=== PATIENT | female | born 1945 | race African-American/Black ===

== ENCOUNTER 2018-04-23 11:40 | Emergency (ER) | payer MEDICARE, MEDICAID ==
[~2018-04-23] VITALS: Ht 162.6 cm; Wt 80.0 kg
[~2018-04-23 11:40] MED LIST: AMLO10TA80 PO; ATEN100T PO; BENA40TA3 PO; CLOP75TA16 PO; HYDR25TA PO; PROT40 PO
[2018-04-23 13:05] LABS: EOSINOPHILS % 1.1 % (0.0-5.0); HEMATOCRIT. 36.6 % (36.0-48.0); HEMOGLOBIN. 11.5 g/dL (12.0-16.0); LYMPHOCYTES % 26.8 % (20.0-50.0); MEAN CORPUSCULAR HEMOGLOBIN 22.6 pg (28.0-32.0); MEAN CORPUSCULAR VOLUME 72.1 fL (81.0-99.0); MEAN PLATELET VOLUME 8.5 fl (7.4-10.4); MONOCYTES % 7.7 % (2.0-8.0); NEUTROPHILS % 63.4 % (40.0-76.0); PLATELET 329 x1000/uL (130-400); RED BLOOD CELL COUNT 5.08 mill/uL (4.2-5.4)
[2018-04-23 13:12] LABS: PROTHROMBIN TIME 10.8 sec (9.4-11.6)
[2018-04-23 13:21] LABS: CHLORIDE 107 mEq/L (98-107)
[2018-04-23 15:37] LABS: CLARITY URINE CLEAR (CLEAR); COLOR URINE YELLOW (YELLOW); KETONES URINE NEGATIVE (NEGATIVE); LEUKOCYTE ESTERASE URINE NEGATIVE (NEGATIVE); NITRITE URINE NEGATIVE (NEGATIVE); OCCULT BLOOD URINE TRACE (NEGATIVE); PH URINE 5.5 (4.5-8.0); PROTEIN URINE 2+ (NEGATIVE); SPECIFIC GRAVITY URINE 1.015 (1.005-1.030); UROBILINOGEN URINE 0.2 E.U./dL (0.2-1.0)
[2018-04-23] MEDS ORDERED: ATENOLOL 100 MG TABLET PO NR (15:45)
[2018-04-23] MEDS ORDERED: POTASSIUM CHLORIDE INJ 40 MEQ in DEXT 5% WATER 250 ML IV ONE (15:45)
[2018-04-23] MEDS ORDERED: POTASSIUM CHLORIDE 20MEQ TABLET SR PO ONE (15:45)
[2018-04-23] MEDS ORDERED: KCL 20 MEQ/100 ML IV SCH (16:00)
[2018-04-23] MEDS ORDERED: KCL 20MEQ/100ML PREMIX 100 ML IV SCH (16:49)
[2018-04-23 20:26] LABS: CHLORIDE 111 mEq/L (98-107)
[2018-04-24 00:19] VITALS: BP 158/63
== END 2018-04-24 01:00 | disposition home or self-care (01) ==
LOC: ER 11:40
DX: I10 Essential (primary) hypertension (principal); E78.00 Pure hypercholesterolemia, unspecified; E11.9 Type 2 diabetes mellitus without complications; M16.11 Unilateral primary osteoarthritis, right hip; M17.11 Unilateral primary osteoarthritis, right knee; E87.6 Hypokalemia; Z87.891 Personal history of nicotine dependence
CPT/HCPCS: 36415; 73502; 73562; 80048; 80053; 81003; 85025; 85610; 96365; 96366; 99285; J3480

== ENCOUNTER 2018-12-27 10:09 | Inpatient (IN) | payer MEDICARE, MEDICAID ==
[~2018-12-27] VITALS: Ht 152.4 cm; Wt 78.6 kg
[2018-12-27] VITALS (7 sets, daily range): BP systolic 143–162; BP diastolic 87–97
[~2018-12-27 10:09] MED LIST changes: -BENA40TA3 PO; +BENA40TA9 PO
[2018-12-27] MEDS ORDERED: SODIUM CHLORIDE 0.9% 1000ML BAG (SEPSIS BOLUS) IV ONE (11:30)
[2018-12-27] MEDS ORDERED: CEFTRIAXONE 1 G PREMIX 50 ML IV ONE (11:30)
[2018-12-27 12:23] LABS: HEMATOCRIT. 23.9 % (36.0-48.0); MEAN CORPUSCULAR HEMOGLOBIN 14.8 pg (28.0-32.0); MEAN CORPUSCULAR VOLUME 55.7 fL (81.0-99.0); MEAN PLATELET VOLUME 8.2 fl (7.4-10.4); PLATELET 380 x1000/uL (130-400); RED CELL DISTRIBUTION WIDTH 26.5 % (11.6-14.6)
[2018-12-27 12:24] LABS: INR 1.1; PROTHROMBIN TIME 10.9 sec (9.1-11.1)
[2018-12-27 12:27] LABS: CHLORIDE 104 mEq/L (98-107)
[2018-12-27 12:34] LABS: HEMOGLOBIN. 6.3 g/dL (12.0-16.0)
[2018-12-27 12:40] LABS: BG BASE EXCESS -3.7 mmol/L (-2.0-2.0); BG CARBOXYHEMOGLOBIN 2.5 % (0.5-1.5); BG DEOXYHEMOGLOBIN 3.6 % (0.0-5.0); BG FRACTION INSPIRED OXYGEN 100; BG HCO3 ACT 19.7 mmol/L (22.0-26.0); BG METHEMOGLOBIN 0.1 % (0.0-1.5); BG OXYGEN SATURATION 96.3 % (92.0-98.5); BG OXYHEMOGLOBIN 93.8 % (94.0-97.0); BG PCO2 28.3 mmHg (35.0-45.0); BG PO2 91.2 mmHg (75.0-100.0); BG SAMPLE SITE LEFT BRACHIAL; BG TOTAL HEMOGLOBIN 6.6 g/dL (12.0-18.0); BG VENT MODE MASK - NRB
[2018-12-27 13:06] LABS: CLARITY URINE CLEAR (CLEAR); COLOR URINE YELLOW (YELLOW); KETONES URINE TRACE (NEGATIVE); LEUKOCYTE ESTERASE URINE NEGATIVE (NEGATIVE); NITRITE URINE NEGATIVE (NEGATIVE); OCCULT BLOOD URINE NEGATIVE (NEGATIVE); PH URINE 5.5 (4.5-8.0); PROTEIN URINE 1+ (NEGATIVE); SPECIFIC GRAVITY URINE 1.025 (1.005-1.030)
[2018-12-27 13:27] LABS: PLATELET ESTIMATE NORMAL
[2018-12-27] MEDS ORDERED: LORAZEPAM 2MG/ML CPJ IV ONE ×2 (13:30→15:30)
[2018-12-27] MEDS ORDERED: VANCOMYCIN 1 G PREMIX 200 ML IV SCH (13:30)
[2018-12-27] MEDS ORDERED: PIPERACILLIN/TAZOBACTAM 3.375GM/50ML PREMIX IV ONE (13:30)
[2018-12-27] MEDS ORDERED: HYDRALAZINE 20MG/ML VIAL IV PRN (20:00)
[2018-12-27] MEDS ORDERED: GUAIFENESIN 200MG/10ML SUGAR FREE UDC PO PRN (20:00)
[2018-12-27] MEDS ORDERED: MAGNESIUM/ALUMINUM HYDROXIDE/SIMETHICONE 30ML UDC PO PRN (20:00)
[2018-12-27] MEDS ORDERED: DIPHENHYDRAMINE 50MG/ML VIAL IV PRN (20:00)
[2018-12-27] MEDS ORDERED: IPRATROPIUM/ALBUTEROL 0.5-3(2.5)MG/3ML NEB INH PRN (20:00)
[2018-12-27] MEDS ORDERED: CLONIDINE 0.1MG TABLET PO PRN (20:00)
[2018-12-27] MEDS ORDERED: NA PHOS,M-B/NA PHOS,DI-BA ENEMA 118ML PR PRN (20:00)
[2018-12-27] MEDS ORDERED: PIPERACILLIN/TAZ 2.25G PREMIX 50 ML IV SCH (20:00)
[2018-12-27] MEDS ORDERED: ONDANSETRON HCL 4MG/2ML INJ IV PRN (20:00)
[2018-12-27] MEDS ORDERED: DEXTROSE 50% WATER 50ML SYRINGE IV PRN (20:00)
[2018-12-27] MEDS ORDERED: ALBUTEROL (0.083%) 2.5MG/3ML NEB INH SCH (20:00)
[2018-12-27] MEDS ORDERED: ACETAMINOPHEN 650MG SUPP PR PRN (20:00)
[2018-12-27] MEDS ORDERED: DOCUSATE SODIUM 100MG CAPSULE PO PRN (20:00)
[2018-12-27] MEDS ORDERED: ACETAMINOPHEN 650MG/20.3ML UDC GT PRN (20:00)
[2018-12-27] MEDS ORDERED: ATOR10TA69 MT (20:11)
[2018-12-27] MEDS: BLOOD SUGAR DIAGNOSTIC STRIP TEST SCH (21:00)
[2018-12-27] MEDS: INSULIN LISPRO 100 UNITS/ML SUBCUT SCH (21:00)
[2018-12-27] MEDS: SODIUM CHLORIDE 0.9% INJ 3ML FLUSH IVF SCH (22:00)
[2018-12-27] MEDS ORDERED: POTASSIUM CHLORIDE INJ 40 MEQ in DEXT 5% WATER 500 ML IV NR (22:00)
[2018-12-27 22:19] LABS: BG BASE EXCESS -0.7 mmol/L (-2.0-2.0); BG BILEVEL POS AIRWAY PRESSURE 15/7; BG CARBOXYHEMOGLOBIN 1.8 % (0.5-1.5); BG DEOXYHEMOGLOBIN 2.3 % (0.0-5.0); BG FRACTION INSPIRED OXYGEN 50; BG HCO3 ACT 23.1 mmol/L (22.0-26.0); BG METHEMOGLOBIN 0.3 % (0.0-1.5); BG OXYGEN SATURATION 97.7 % (92.0-98.5); BG OXYHEMOGLOBIN 95.6 % (94.0-97.0); BG PCO2 34.1 mmHg (35.0-45.0); BG PH 7.449 (7.350-7.450); BG PO2 106.8 mmHg (75.0-100.0); BG SAMPLE SITE LEFT RADIAL; BG TOTAL HEMOGLOBIN 7.8 g/dL (12.0-18.0); BG VENT MODE MASK - BIPAP
[2018-12-27] MEDS: SODIUM CHLORIDE 0.9% 1,000 ML IV SCH (22:47)
[2018-12-28] VITALS (12 sets, daily range): BP systolic 114–154; BP diastolic 69–95
[2018-12-28] MEDS ORDERED: ALBUTEROL (0.083%) 2.5MG/3ML NEB HHN SCH
[2018-12-28 00:32] LABS: CREATINE KINASE MB FRACTION 2.1 ng/mL (0.5-3.6)
[2018-12-28] MEDS: PIPERACILLIN/TAZ 3.375G PREMIX 50 ML IV SCH ×5 (00:47→23:33)
[2018-12-28] MEDS: SODIUM CHLORIDE 0.9% INJ 3ML FLUSH IVF SCH ×3 (05:59→21:26)
[2018-12-28] MEDS: VANCOMYCIN 750 MG PREMIX 150 ML IV SCH (06:05)
[2018-12-28 06:26] LABS: CLARITY URINE CLEAR (CLEAR); COLOR URINE YELLOW (YELLOW); KETONES URINE NEGATIVE (NEGATIVE); LEUKOCYTE ESTERASE URINE NEGATIVE (NEGATIVE); NITRITE URINE NEGATIVE (NEGATIVE); OCCULT BLOOD URINE 1+ (NEGATIVE); PH URINE 6.5 (4.5-8.0); PROTEIN URINE NEGATIVE (NEGATIVE); SPECIFIC GRAVITY URINE 1.013 (1.005-1.030); UROBILINOGEN URINE 0.2 E.U./dL (0.2-1.0)
[2018-12-28] MEDS: BLOOD SUGAR DIAGNOSTIC STRIP TEST SCH ×4 (06:56→20:40)
[2018-12-28] MEDS: INSULIN LISPRO 100 UNITS/ML SUBCUT SCH ×4 (07:20→20:39)
[2018-12-28 07:23] LABS: *AMPHETAMINES SCREEN URINE NEGATIVE (NEGATIVE); *BARBITURATES SCREEN URINE NEGATIVE (NEGATIVE); *BENZODIAZEPINES SCREEN URINE NEGATIVE (NEGATIVE)
[2018-12-28 07:24] LABS: *COCAINE SCREEN URINE NEGATIVE (NEGATIVE); CANNABINOID URINE SCREEN NEGATIVE (NEGATIVE); METHADONE URINE SCREEN NEGATIVE (NEGATIVE); OPIATES URINE SCREEN PRESUMTIVE POSITIVE (NEGATIVE); PHENCYCLIDINE URINE SCREEN NEGATIVE (NEGATIVE)
[2018-12-28 07:47] LABS: HEMATOCRIT. 24.5 % (36.0-48.0); HEMOGLOBIN. 7.2 g/dL (12.0-16.0); MEAN CORPUSCULAR HEMOGLOBIN 17.4 pg (28.0-32.0); MEAN PLATELET VOLUME 8.2 fl (7.4-10.4); PLATELET 267 x1000/uL (130-400); RED BLOOD CELL COUNT 4.15 mill/uL (4.2-5.4); RED CELL DISTRIBUTION WIDTH 29.1 % (11.6-14.6)
[2018-12-28 08:02] LABS: CHLORIDE 107 mEq/L (98-107)
[2018-12-28 08:13] LABS: CREATINE KINASE 119 IU/L (26-192); HDL CHOLESTEROL 45 mg/dL (40-59); LDL CHOLESTEROL 24 mg/dL (5-100)
[2018-12-28 08:17] LABS: CREATINE KINASE MB FRACTION 1.9 ng/mL (0.5-3.6)
[2018-12-28 10:12] LABS: T4 FREE 1.12 ng/dL (0.76-1.46)
[2018-12-28 11:45] LABS: BG BASE EXCESS -0.3 mmol/L (-2.0-2.0); BG CARBOXYHEMOGLOBIN 1.8 % (0.5-1.5); BG FRACTION INSPIRED OXYGEN 36; BG HCO3 ACT 23.2 mmol/L (22.0-26.0); BG METHEMOGLOBIN 0.3 % (0.0-1.5); BG OXYGEN SATURATION 89.8 % (92.0-98.5); BG OXYHEMOGLOBIN 87.9 % (94.0-97.0); BG PCO2 33.2 mmHg (35.0-45.0); BG PH 7.463 (7.350-7.450); BG PO2 57.8 mmHg (75.0-100.0); BG SAMPLE SITE RIGHT BRACHIAL; BG TOTAL HEMOGLOBIN 7.8 g/dL (12.0-18.0); BG VENT MODE NASAL CANNULA
[2018-12-28 15:35] LABS: BG CARBOXYHEMOGLOBIN 1.2 % (0.5-1.5); BG DEOXYHEMOGLOBIN 13.4 % (0.0-5.0); BG FRACTION INSPIRED OXYGEN 50; BG HCO3 ACT 24.2 mmol/L (22.0-26.0); BG METHEMOGLOBIN 0.3 % (0.0-1.5); BG OXYGEN SATURATION 86.4 % (92.0-98.5); BG OXYHEMOGLOBIN 85.1 % (94.0-97.0); BG PCO2 32.4 mmHg (35.0-45.0); BG PH 7.492 (7.350-7.450); BG SAMPLE SITE RIGHT BRACHIAL; BG TOTAL HEMOGLOBIN 7.6 g/dL (12.0-18.0); BG VENT MODE MASK - VENTI
[2018-12-28] MEDS: ALBUTEROL (0.083%) 2.5MG/3ML NEB HHN SCH ×2 (16:00→20:04)
[2018-12-28 17:01] LABS: CREATINE KINASE MB FRACTION 1.3 ng/mL (0.5-3.6)
[2018-12-28] MEDS: SODIUM CHLORIDE 0.9% 1,000 ML IV SCH (17:19)
[2018-12-28] MEDS: POTASSIUM CHLORIDE 20MEQ TABLET SR PO PRN (17:32)
[2018-12-28 21:40] LABS: CREATINE KINASE 94 IU/L (26-192)
[2018-12-28 21:41] LABS: CREATINE KINASE MB FRACTION < 1.0 ng/mL (0.5-3.6)
[2018-12-28 21:47] LABS: PLATELET ESTIMATE NORMAL
[2018-12-29] VITALS (16 sets, daily range): BP systolic 121–165; BP diastolic 66–95
[2018-12-29] MEDS: ALBUTEROL (0.083%) 2.5MG/3ML NEB HHN SCH ×6 (00:04→20:59)
[2018-12-29] MEDS: VANCOMYCIN 750 MG PREMIX 150 ML IV SCH ×3 (00:42→21:11)
[2018-12-29] MEDS: SODIUM CHLORIDE 0.9% INJ 3ML FLUSH IVF SCH ×3 (06:21→21:12)
[2018-12-29] MEDS: BLOOD SUGAR DIAGNOSTIC STRIP TEST SCH ×4 (06:21→21:00)
[2018-12-29] MEDS: PIPERACILLIN/TAZ 3.375G PREMIX 50 ML IV SCH ×3 (06:21→17:08)
[2018-12-29] MEDS: INSULIN LISPRO 100 UNITS/ML SUBCUT SCH ×4 (06:21→21:00)
[2018-12-29 06:47] LABS: CREATINE KINASE 102 IU/L (26-192); CREATINE KINASE MB FRACTION < 1.0 ng/mL (0.5-3.6)
[2018-12-29] MEDS: SODIUM CHLORIDE 0.9% 1,000 ML IV SCH (10:05)
[2018-12-29 13:11] LABS: HEMATOCRIT. 26.9 % (36.0-48.0); HEMOGLOBIN. 7.6 g/dL (12.0-16.0); MEAN CORPUSCULAR HEMOGLOBIN 16.5 pg (28.0-32.0); MEAN CORPUSCULAR VOLUME 58.6 fL (81.0-99.0); MEAN PLATELET VOLUME 8.2 fl (7.4-10.4); PLATELET 264 x1000/uL (130-400); RED BLOOD CELL COUNT 4.59 mill/uL (4.2-5.4); RED CELL DISTRIBUTION WIDTH 30.3 % (11.6-14.6)
[2018-12-29 13:16] LABS: CHLORIDE 103 mEq/L (98-107)
[2018-12-29 13:43] LABS: PLATELET ESTIMATE NORMAL
[2018-12-29] MEDS ORDERED: LACTULOSE 20G/30ML UDC PO SCH (14:00)
[2018-12-29] MEDS: ACETAMINOPHEN 325MG TABLET PO PRN (17:58)
[2018-12-29] MEDS ORDERED: IOHEXOL-350 100 ML BOTTLE ONE (19:08)
[2018-12-29] MEDS: POTASSIUM CHLORIDE 20MEQ TABLET SR PO PRN (19:15)
[2018-12-30] VITALS (17 sets, daily range): BP systolic 110–155; BP diastolic 51–91
[2018-12-30] MEDS: PIPERACILLIN/TAZ 3.375G PREMIX 50 ML IV SCH ×4 (00:08→17:44)
[2018-12-30] MEDS: FUROSEMIDE 40MG/4ML VIAL IVP SCH ×2 (00:12→08:12)
[2018-12-30] MEDS: ALBUTEROL (0.083%) 2.5MG/3ML NEB HHN SCH ×6 (01:26→20:31)
[2018-12-30] MEDS: SODIUM CHLORIDE 0.9% INJ 3ML FLUSH IVF SCH ×3 (02:00→14:00)
[2018-12-30] MEDS: VANCOMYCIN 750 MG PREMIX 150 ML IV SCH ×3 (05:00→22:40)
[2018-12-30] MEDS: INSULIN LISPRO 100 UNITS/ML SUBCUT SCH ×4 (06:49→21:00)
[2018-12-30] MEDS: BLOOD SUGAR DIAGNOSTIC STRIP TEST SCH ×4 (06:49→21:00)
[2018-12-30] MEDS: HYDROCODONE/ACETAMINOPHEN 5/325MG TABLET PO PRN ×2 (07:07→11:45)
[2018-12-30 13:03] LABS: BG BASE EXCESS 6.8 mmol/L (-2.0-2.0); BG CARBOXYHEMOGLOBIN 1.3 % (0.5-1.5); BG DEOXYHEMOGLOBIN 16.7 % (0.0-5.0); BG HCO3 ACT 30.4 mmol/L (22.0-26.0); BG METHEMOGLOBIN 0.1 % (0.0-1.5); BG OXYGEN SATURATION 83.1 % (92.0-98.5); BG OXYHEMOGLOBIN 81.9 % (94.0-97.0); BG PCO2 39.1 mmHg (35.0-45.0); BG PH 7.508 (7.350-7.450); BG PO2 46.9 mmHg (75.0-100.0); BG SAMPLE SITE RIGHT RADIAL; BG TOTAL HEMOGLOBIN 9.1 g/dL (12.0-18.0); BG VENT MODE MASK - VENTI
[2018-12-30] MEDS ORDERED: SODIUM BICARBONATE 4% (2.4MEQ) 5ML VIAL IV ONE (13:20)
[2018-12-30] MEDS: SODIUM CHLORIDE 0.9% 1,000 ML IV SCH (17:49)
[2018-12-31] VITALS (19 sets, daily range): BP systolic 107–165; BP diastolic 51–91
[2018-12-31] MEDS: ALBUTEROL (0.083%) 2.5MG/3ML NEB HHN SCH ×5 (00:12→20:49)
[2018-12-31] MEDS: PIPERACILLIN/TAZ 3.375G PREMIX 50 ML IV SCH ×5 (01:12→23:39)
[2018-12-31] MEDS: SODIUM CHLORIDE 0.9% 1,000 ML IV SCH ×2 (04:00→23:40)
[2018-12-31] MEDS: VANCOMYCIN 750 MG PREMIX 150 ML IV SCH (04:58)
[2018-12-31] MEDS: SODIUM CHLORIDE 0.9% INJ 3ML FLUSH IVF SCH ×2 (06:00→22:19)
[2018-12-31] MEDS: BLOOD SUGAR DIAGNOSTIC STRIP TEST SCH ×4 (06:59→20:56)
[2018-12-31] MEDS: INSULIN LISPRO 100 UNITS/ML SUBCUT SCH ×4 (07:20→20:57)
[2018-12-31 08:21] LABS: CHLORIDE 98 mEq/L (98-107)
[2018-12-31] MEDS ORDERED: POTASSIUM CHLORIDE INJ 40 MEQ in DEXT 5% WATER 250 ML IV SCH (11:00)
[2018-12-31] MEDS: FUROSEMIDE 40MG/4ML VIAL IVP SCH (16:02)
[2018-12-31] MEDS: HYDROCODONE/ACETAMINOPHEN 5/325MG TABLET PO PRN (17:54)
[2018-12-31] MEDS: POTASSIUM CHLORIDE 20MEQ TABLET SR PO PRN (23:39)
[2019-01-01] VITALS (12 sets, daily range): BP systolic 116–151; BP diastolic 33–97
[2019-01-01] MEDS: ALBUTEROL (0.083%) 2.5MG/3ML NEB HHN SCH ×7 (00:38→23:09)
[2019-01-01] MEDS: PIPERACILLIN/TAZ 3.375G PREMIX 50 ML IV SCH (05:24)
[2019-01-01] MEDS: SODIUM CHLORIDE 0.9% INJ 3ML FLUSH IVF SCH ×3 (05:24→21:54)
[2019-01-01] MEDS: BLOOD SUGAR DIAGNOSTIC STRIP TEST SCH ×4 (06:59→20:28)
[2019-01-01] MEDS: INSULIN LISPRO 100 UNITS/ML SUBCUT SCH ×4 (07:20→20:28)
[2019-01-01 08:57] LABS: BG BASE EXCESS 7.2 mmol/L (-2.0-2.0); BG CARBOXYHEMOGLOBIN 0.8 % (0.5-1.5); BG DEOXYHEMOGLOBIN 1.6 % (0.0-5.0); BG FRACTION INSPIRED OXYGEN 80; BG HCO3 ACT 31.8 mmol/L (22.0-26.0); BG METHEMOGLOBIN 0.3 % (0.0-1.5); BG OXYGEN SATURATION 98.4 % (92.0-98.5); BG OXYHEMOGLOBIN 97.3 % (94.0-97.0); BG PCO2 45.7 mmHg (35.0-45.0); BG PO2 118.9 mmHg (75.0-100.0); BG SAMPLE SITE RIGHT BRACHIAL; BG TOTAL HEMOGLOBIN 9.5 g/dL (12.0-18.0); BG VENT MODE VAPOTHERM
[2019-01-01] MEDS: FUROSEMIDE 40MG/4ML VIAL IVP SCH (09:26)
[2019-01-01] MEDS: HYDROCODONE/ACETAMINOPHEN 5/325MG TABLET PO PRN ×2 (09:27→14:25)
[2019-01-01] MEDS ORDERED: VANCOMYCIN 1 G PREMIX 200 ML IV SCH (12:00)
[2019-01-01] MEDS: PIPERACILLIN/TAZ 2.25G PREMIX 50 ML IV SCH ×3 (12:54→23:11)
[2019-01-01] MEDS: SODIUM CHLORIDE 0.9% 1,000 ML IV SCH (20:36)
[2019-01-01 21:15] LABS: HEMOGLOBIN. 7.5 g/dL (12.0-16.0); MEAN CORPUSCULAR HEMOGLOBIN 17.3 pg (28.0-32.0); MEAN CORPUSCULAR VOLUME 59.6 fL (81.0-99.0); MEAN PLATELET VOLUME 8.3 fl (7.4-10.4); PLATELET 271 x1000/uL (130-400); RED BLOOD CELL COUNT 4.36 mill/uL (4.2-5.4); RED CELL DISTRIBUTION WIDTH 28.9 % (11.6-14.6)
[2019-01-01 21:22] LABS: INR 1.1; PROTHROMBIN TIME 10.8 sec (9.1-11.1)
[2019-01-01] MEDS ORDERED: HYDROCODONE/ACETAMINOPHEN 5/325MG TABLET PO PRN (21:30)
[2019-01-01 22:45] LABS: PLATELET ESTIMATE NORMAL
[2019-01-01] MEDS: POTASSIUM CHLORIDE 20MEQ TABLET SR PO PRN (23:11)
[2019-01-02] VITALS (12 sets, daily range): BP systolic 115–158; BP diastolic 62–88
[2019-01-02] MEDS: ALBUTEROL (0.083%) 2.5MG/3ML NEB HHN SCH ×5 (02:10→20:26)
[2019-01-02] MEDS: SODIUM CHLORIDE 0.9% INJ 3ML FLUSH IVF SCH ×3 (05:35→21:39)
[2019-01-02] MEDS: PIPERACILLIN/TAZ 2.25G PREMIX 50 ML IV SCH ×4 (05:35→23:56)
[2019-01-02 06:42] LABS: HEMATOCRIT. 25.5 % (36.0-48.0); HEMOGLOBIN. 7.6 g/dL (12.0-16.0); MEAN CORPUSCULAR HEMOGLOBIN 17.6 pg (28.0-32.0); MEAN CORPUSCULAR VOLUME 59.3 fL (81.0-99.0); MEAN PLATELET VOLUME 8.3 fl (7.4-10.4); PLATELET 289 x1000/uL (130-400); RED CELL DISTRIBUTION WIDTH 29.2 % (11.6-14.6)
[2019-01-02] MEDS: BLOOD SUGAR DIAGNOSTIC STRIP TEST SCH ×4 (06:44→21:39)
[2019-01-02] MEDS: INSULIN LISPRO 100 UNITS/ML SUBCUT SCH ×4 (07:19→21:00)
[2019-01-02] MEDS: FUROSEMIDE 40MG/4ML VIAL IVP SCH (08:20)
[2019-01-02] MEDS: ACETAMINOPHEN 325MG TABLET PO PRN ×2 (09:12→19:44)
[2019-01-02] MEDS ORDERED: VANCOMYCIN 1 G PREMIX 200 ML IV SCH (14:00)
[2019-01-02] MEDS: SODIUM CHLORIDE 0.9% 1,000 ML IV SCH (15:01)
[2019-01-03] VITALS (12 sets, daily range): BP systolic 104–175; BP diastolic 45–90
[2019-01-03] MEDS: ALBUTEROL (0.083%) 2.5MG/3ML NEB HHN SCH ×6 (00:05→20:01)
[2019-01-03] MEDS: ACETAMINOPHEN 325MG TABLET PO PRN ×3 (04:25→20:02)
[2019-01-03] MEDS: BLOOD SUGAR DIAGNOSTIC STRIP TEST SCH ×4 (06:02→20:51)
[2019-01-03] MEDS: SODIUM CHLORIDE 0.9% INJ 3ML FLUSH IVF SCH ×3 (06:04→21:55)
[2019-01-03] MEDS: PIPERACILLIN/TAZ 2.25G PREMIX 50 ML IV SCH ×3 (06:05→18:08)
[2019-01-03] MEDS: INSULIN LISPRO 100 UNITS/ML SUBCUT SCH ×4 (07:12→20:52)
[2019-01-03] MEDS: FUROSEMIDE 40MG/4ML VIAL IVP SCH (08:23)
[2019-01-03] MEDS: SODIUM CHLORIDE 0.9% 1,000 ML IV SCH (11:18)
[2019-01-03 13:45] LABS: PLATELET ESTIMATE NORMAL
[2019-01-03] MEDS ORDERED: VANCOMYCIN 1 G PREMIX 200 ML IV SCH (14:30)
[2019-01-03] MEDS: VANCOMYCIN 1 G PREMIX 200 ML IV SCH (16:30)
[2019-01-03] MEDS: DIPHENOXYLATE/ATROPINE 2.5/0.025MG TABLET PO PRN (21:53)
[2019-01-04] VITALS (9 sets, daily range): BP systolic 106–155; BP diastolic 58–83
[2019-01-04] MEDS: ALBUTEROL (0.083%) 2.5MG/3ML NEB HHN SCH ×6 (00:07→21:09)
[2019-01-04] MEDS: SODIUM CHLORIDE 0.9% INJ 3ML FLUSH IVF SCH ×3 (05:57→22:00)
[2019-01-04] MEDS: BLOOD SUGAR DIAGNOSTIC STRIP TEST SCH ×4 (06:32→21:58)
[2019-01-04] MEDS: INSULIN LISPRO 100 UNITS/ML SUBCUT SCH ×4 (07:20→21:00)
[2019-01-04] MEDS: FUROSEMIDE 40MG/4ML VIAL IVP SCH (10:03)
[2019-01-04] MEDS: SODIUM CHLORIDE 0.9% 1,000 ML IV SCH (10:04)
[2019-01-04] MEDS ORDERED: POTASSIUM CHLORIDE 20MEQ TABLET SR PO PRN (12:15)
[2019-01-04] MEDS: DIPHENOXYLATE/ATROPINE 2.5/0.025MG TABLET PO PRN (12:53)
[2019-01-04] MEDS: ACETAMINOPHEN 325MG TABLET PO PRN (15:57)
[2019-01-04] MEDS: POTASSIUM CHLORIDE 20MEQ TABLET SR PO PRN (15:57)
[2019-01-04] MEDS: VANCOMYCIN 1 G PREMIX 200 ML IV SCH (17:13)
[2019-01-04] MEDS ORDERED: ALBU2.5V13 HHN (19:59)
[2019-01-04] MEDS ORDERED: INSLIS SUBCUT (19:59)
[2019-01-04] MEDS ORDERED: FURO-151 MT (19:59)
[2019-01-05] VITALS (7 sets, daily range): BP systolic 115–154; BP diastolic 60–93
[2019-01-05] MEDS: ALBUTEROL (0.083%) 2.5MG/3ML NEB HHN SCH ×3 (01:55→08:00)
[2019-01-05] MEDS: SODIUM CHLORIDE 0.9% INJ 3ML FLUSH IVF SCH ×3 (06:34→21:56)
[2019-01-05] MEDS: BLOOD SUGAR DIAGNOSTIC STRIP TEST SCH ×4 (07:10→21:00)
[2019-01-05] MEDS: INSULIN LISPRO 100 UNITS/ML SUBCUT SCH ×4 (07:40→21:00)
[2019-01-05] MEDS: ACETAMINOPHEN 325MG TABLET PO PRN ×2 (09:36→15:38)
[2019-01-05] MEDS: FUROSEMIDE 40MG/4ML VIAL IVP SCH (09:36)
[2019-01-05] MEDS: IPRATROPIUM/ALBUTEROL 0.5-3(2.5)MG/3ML NEB HHN SCH ×2 (14:48→21:19)
[2019-01-05 16:44] LABS: BASOPHILS % 1.2 % (0.0-2.0); EOSINOPHILS % 1.3 % (0.0-5.0); HEMATOCRIT. 26.2 % (36.0-48.0); HEMOGLOBIN. 7.6 g/dL (12.0-16.0); LYMPHOCYTES % 25.8 % (20.0-50.0); MEAN CORPUSCULAR HEMOGLOBIN 17.3 pg (28.0-32.0); MEAN CORPUSCULAR VOLUME 59.5 fL (81.0-99.0); MEAN PLATELET VOLUME 8.3 fl (7.4-10.4); MONOCYTES % 9.4 % (2.0-8.0); NEUTROPHILS % 62.3 % (40.0-76.0); PLATELET 487 x1000/uL (130-400); RED BLOOD CELL COUNT 4.41 mill/uL (4.2-5.4); RED CELL DISTRIBUTION WIDTH 29.2 % (11.6-14.6)
[2019-01-05 16:49] LABS: CHLORIDE 104 mEq/L (98-107)
[2019-01-05] MEDS ORDERED: VANCOMYCIN 1,000 MG in DEXT 5% WATER 250 ML IV SCH ×2 (17:00→18:30)
== END 2019-01-05 23:00 | DRG 871 ==
LOC: ER 10:09 → EDBEDREQSVC 13:14 → EDBEDREQ 13:14 → EDBEDREQTM 13:14 → 3WST 13:23 → EDBEDREQSVC 13:23 → ENRESERV 15:36 → 8WST 01-04 13:23
PROVIDERS: ADMIT Family Medicine; ATTEND Family Medicine
PROC: 30233N1 Transfusion of Nonautologous Red Blood Cells into Peripheral Vein, Percutaneous Approach (ICD-10-PCS; 2018-12-27)
PROC: 5A09357 Assistance with Respiratory Ventilation, Less than 24 Consecutive Hours, Continuous Positive Airway Pressure (ICD-10-PCS; 2018-12-27)
PROC: 02HV33Z Insertion of Infusion Device into Superior Vena Cava, Percutaneous Approach (ICD-10-PCS; 2018-12-29)
PROC: B5181ZA Fluoroscopy of Superior Vena Cava using Low Osmolar Contrast, Guidance (ICD-10-PCS; 2018-12-29)
PROC: 0W9B3ZZ Drainage of Left Pleural Cavity, Percutaneous Approach (ICD-10-PCS; principal; 2018-12-30)
PROC: 5A09357 Assistance with Respiratory Ventilation, Less than 24 Consecutive Hours, Continuous Positive Airway Pressure (ICD-10-PCS; 2018-12-30)
PROC: 5A09357 Assistance with Respiratory Ventilation, Less than 24 Consecutive Hours, Continuous Positive Airway Pressure (ICD-10-PCS; 2018-12-31)
DX: A41.9 Sepsis, unspecified organism (principal); J96.00 Acute respiratory failure, unspecified whether with hypoxia or hypercapnia; J69.0 Pneumonitis due to inhalation of food and vomit; G92 Toxic encephalopathy; S22.32XA Fracture of one rib, left side, initial encounter for closed fracture; E87.2 Acidosis; J98.11 Atelectasis; J90 Pleural effusion, not elsewhere classified; T39.1X1A Poisoning by 4-Aminophenol derivatives, accidental (unintentional), initial encounter; D64.9 Anemia, unspecified; E87.6 Hypokalemia; E11.9 Type 2 diabetes mellitus without complications; I11.9 Hypertensive heart disease without heart failure; G89.4 Chronic pain syndrome; E78.5 Hyperlipidemia, unspecified; I10 Essential (primary) hypertension; I27.21 Secondary pulmonary arterial hypertension; W18.39XA Other fall on same level, initial encounter; Y93.89 Activity, other specified; Y92.89 Other specified places as the place of occurrence of the external cause; Y99.8 Other external cause status
CPT/HCPCS: 32555; 36415; 36569; 36600; 71045; 71275; 76937; 78582; 80048; 80061; 80202; 80305; 82040; 82140; 82270; 82375; 82550; 82553; 82805; 82962; 83036; 83605; 83615; 83880; 84145; 84439; 84443; 84484; 85379; 86850; 86900; 86920; 87804; 88108; 88312; 93005; 93306; 93970; 94640; 94660; 96374; 97162; 97530; 99285; A9558; C1725; J0360; J0696; J1815; J1940; J2060; J2543; J3370; J3480; J3490; J7030; J7060; J7611; J7620; P9016; Q9967; A4315

== ENCOUNTER 2019-01-05 23:14 | Inpatient (IN) | payer MEDICARE, MEDICAID ==
[~2019-01-05] VITALS: Ht 152.4 cm; Wt 70.3 kg
[2019-01-05 23:14] VITALS: BP 148/61
[~2019-01-05 23:14] MED LIST changes: +ALBU2.5V13 HHN; +FURO-151 MT; +INSLIS SUBCUT
[2019-01-05 23:30] VITALS: BP 148/61
[2019-01-06 08:10] VITALS: BP 129/71
[2019-01-06] MEDS ORDERED: CLONIDINE 0.1MG TABLET PO PRN (08:15)
[2019-01-06] MEDS ORDERED: DEXTROSE 50% WATER 50ML SYRINGE IV PRN (08:15)
[2019-01-06] MEDS ORDERED: ONDANSETRON HCL 4MG/2ML INJ IV PRN (08:15)
[2019-01-06] MEDS ORDERED: MAGNESIUM/ALUMINUM HYDROXIDE/SIMETHICONE 30ML UDC PO PRN (08:15)
[2019-01-06] MEDS ORDERED: ACETAMINOPHEN 650MG/20.3ML UDC GT PRN (08:15)
[2019-01-06] MEDS ORDERED: HYDROCODONE/ACETAMINOPHEN 5/325MG TABLET PO PRN (08:15)
[2019-01-06] MEDS ORDERED: IPRATROPIUM/ALBUTEROL 0.5-3(2.5)MG/3ML NEB INH PRN (08:15)
[2019-01-06] MEDS ORDERED: ACETAMINOPHEN 650MG SUPP PR PRN (08:15)
[2019-01-06] MEDS: INSULIN LISPRO 100 UNITS/ML SUBCUT SCH ×4 (09:00→21:00)
[2019-01-06] MEDS: BLOOD SUGAR DIAGNOSTIC STRIP TEST SCH ×4 (09:16→21:00)
[2019-01-06] MEDS: PANTOPRAZOLE 40MG DR TABLET PO SCH (09:22)
[2019-01-06] MEDS: AMLODIPINE 10MG TABLET PO SCH (09:22)
[2019-01-06] MEDS: FUROSEMIDE 40MG TABLET PO SCH (09:23)
[2019-01-06] MEDS: CLOPIDOGREL 75MG TABLET PO SCH (09:23)
[2019-01-06] MEDS: IPRATROPIUM/ALBUTEROL 0.5-3(2.5)MG/3ML NEB INH SCH ×2 (13:31→21:40)
[2019-01-06] MEDS: SODIUM CHLORIDE 0.9% INJ 3ML FLUSH IVF SCH ×2 (14:20→22:00)
[2019-01-06 20:00] VITALS: BP 129/67
[2019-01-06] MEDS ORDERED: LACTULOSE 20G/30ML UDC PO PRN (21:15)
[2019-01-07] MEDS: IPRATROPIUM/ALBUTEROL 0.5-3(2.5)MG/3ML NEB INH SCH ×3 (02:38→21:00)
[2019-01-07] MEDS: PANTOPRAZOLE 40MG DR TABLET PO SCH (06:20)
[2019-01-07] MEDS: BLOOD SUGAR DIAGNOSTIC STRIP TEST SCH ×4 (06:22→21:00)
[2019-01-07] MEDS: SODIUM CHLORIDE 0.9% INJ 3ML FLUSH IVF SCH ×3 (06:22→22:35)
[2019-01-07] MEDS: INSULIN LISPRO 100 UNITS/ML SUBCUT SCH ×4 (06:22→21:00)
[2019-01-07 06:57] LABS: CHLORIDE 107 mEq/L (98-107)
[2019-01-07 07:00] LABS: BASOPHILS % 1.3 % (0.0-2.0); EOSINOPHILS % 0.6 % (0.0-5.0); HEMATOCRIT. 27.2 % (36.0-48.0); HEMOGLOBIN. 8.1 g/dL (12.0-16.0); LYMPHOCYTES % 24.6 % (20.0-50.0); MEAN CORPUSCULAR HEMOGLOBIN 17.8 pg (28.0-32.0); MEAN CORPUSCULAR VOLUME 59.7 fL (81.0-99.0); MEAN PLATELET VOLUME 8.5 fl (7.4-10.4); MONOCYTES % 7.3 % (2.0-8.0); NEUTROPHILS % 66.2 % (40.0-76.0); PLATELET 735 x1000/uL (130-400); RED BLOOD CELL COUNT 4.55 mill/uL (4.2-5.4)
[2019-01-07 07:07] LABS: LDL CHOLESTEROL 82 mg/dL (5-100)
[2019-01-07 07:10] LABS: HDL CHOLESTEROL 51 mg/dL (40-59)
[2019-01-07 08:22] VITALS: BP 148/78
[2019-01-07] MEDS: CLOPIDOGREL 75MG TABLET PO SCH (10:04)
[2019-01-07] MEDS: FUROSEMIDE 40MG TABLET PO SCH (10:04)
[2019-01-07] MEDS: AMLODIPINE 10MG TABLET PO SCH (10:04)
[2019-01-07] MEDS: ENOXAPARIN 40MG/0.4ML SYR SUBCUT SCH (10:05)
[2019-01-07] MEDS: ACETAMINOPHEN 325MG TABLET PO PRN ×2 (17:08→22:37)
[2019-01-07 20:00] VITALS: BP 112/46
[2019-01-07] MEDS ORDERED: POTASSIUM CHLORIDE 20MEQ TABLET SR PO NR (22:45)
[2019-01-08] MEDS ORDERED: POTASSIUM CHLORIDE 20MEQ TABLET SR PO NR (01:00)
[2019-01-08] MEDS: IPRATROPIUM/ALBUTEROL 0.5-3(2.5)MG/3ML NEB INH SCH ×4 (01:48→21:00)
[2019-01-08] MEDS: PANTOPRAZOLE 40MG DR TABLET PO SCH (06:04)
[2019-01-08] MEDS: BLOOD SUGAR DIAGNOSTIC STRIP TEST SCH ×4 (06:04→21:00)
[2019-01-08] MEDS: SODIUM CHLORIDE 0.9% INJ 3ML FLUSH IVF SCH ×3 (06:05→22:14)
[2019-01-08 06:23] LABS: HEMATOCRIT. 28.5 % (36.0-48.0); HEMOGLOBIN. 7.9 g/dL (12.0-16.0); MEAN CORPUSCULAR HEMOGLOBIN 16.5 pg (28.0-32.0); MEAN CORPUSCULAR VOLUME 59.3 fL (81.0-99.0); MEAN PLATELET VOLUME 8.5 fl (7.4-10.4); PLATELET 889 x1000/uL (130-400); RED BLOOD CELL COUNT 4.81 mill/uL (4.2-5.4); RED CELL DISTRIBUTION WIDTH 29.8 % (11.6-14.6)
[2019-01-08] MEDS: INSULIN LISPRO 100 UNITS/ML SUBCUT SCH ×4 (07:16→21:00)
[2019-01-08 08:00] VITALS: BP 133/68
[2019-01-08] MEDS: CLOPIDOGREL 75MG TABLET PO SCH (09:00)
[2019-01-08] MEDS: FUROSEMIDE 40MG TABLET PO SCH (09:00)
[2019-01-08] MEDS: ENOXAPARIN 40MG/0.4ML SYR SUBCUT SCH (09:00)
[2019-01-08] MEDS: ENOXAPARIN 30MG/0.3ML SYR SUBCUT SCH ×2 (09:00→22:16)
[2019-01-08] MEDS: AMLODIPINE 10MG TABLET PO SCH (09:01)
[2019-01-08] MEDS: ACETAMINOPHEN 325MG TABLET PO PRN ×2 (09:01→17:06)
[2019-01-08 17:14] LABS: PLATELET ESTIMATE MARKEDLY INCREASED
[2019-01-08 20:00] VITALS: BP 119/66
[2019-01-09] MEDS: IPRATROPIUM/ALBUTEROL 0.5-3(2.5)MG/3ML NEB INH SCH ×3 (02:08→20:13)
[2019-01-09] MEDS: SODIUM CHLORIDE 0.9% INJ 3ML FLUSH IVF SCH ×3 (06:04→21:10)
[2019-01-09] MEDS: PANTOPRAZOLE 40MG DR TABLET PO SCH (06:05)
[2019-01-09] MEDS: BLOOD SUGAR DIAGNOSTIC STRIP TEST SCH ×4 (06:30→21:09)
[2019-01-09] MEDS: INSULIN LISPRO 100 UNITS/ML SUBCUT SCH ×4 (07:35→21:00)
[2019-01-09 08:27] VITALS: BP 144/74
[2019-01-09] MEDS: CLOPIDOGREL 75MG TABLET PO SCH (08:35)
[2019-01-09] MEDS: FUROSEMIDE 40MG TABLET PO SCH (08:36)
[2019-01-09] MEDS: AMLODIPINE 10MG TABLET PO SCH (08:36)
[2019-01-09] MEDS: ENOXAPARIN 30MG/0.3ML SYR SUBCUT SCH ×2 (08:36→21:09)
[2019-01-09] MEDS: ACETAMINOPHEN 325MG TABLET PO PRN ×3 (09:26→21:08)
[2019-01-09 20:00] VITALS: BP 125/73
[2019-01-10] MEDS: IPRATROPIUM/ALBUTEROL 0.5-3(2.5)MG/3ML NEB INH SCH ×2 (00:45→09:28)
[2019-01-10] MEDS: SODIUM CHLORIDE 0.9% INJ 3ML FLUSH IVF SCH ×2 (06:00→14:00)
[2019-01-10] MEDS: PANTOPRAZOLE 40MG DR TABLET PO SCH (06:23)
[2019-01-10] MEDS: ACETAMINOPHEN 325MG TABLET PO PRN (06:25)
[2019-01-10] MEDS: BLOOD SUGAR DIAGNOSTIC STRIP TEST SCH ×2 (06:26→10:52)
[2019-01-10] MEDS: INSULIN LISPRO 100 UNITS/ML SUBCUT SCH ×2 (06:28→12:17)
[2019-01-10 08:00] VITALS: BP 131/69
[2019-01-10] MEDS: CLOPIDOGREL 75MG TABLET PO SCH (08:35)
[2019-01-10] MEDS: AMLODIPINE 10MG TABLET PO SCH (08:35)
[2019-01-10] MEDS: ENOXAPARIN 30MG/0.3ML SYR SUBCUT SCH (08:35)
[2019-01-10] MEDS: FUROSEMIDE 40MG TABLET PO SCH (08:35)
[2019-01-10 12:20] VITALS: BP 131/69
== END 2019-01-10 14:45 | disposition home health service (06) | DRG 91 ==
PROVIDERS: ADMIT Psychiatry & Neurology Neurology; ATTEND Family Medicine
DX: G92 Toxic encephalopathy (principal); J96.00 Acute respiratory failure, unspecified whether with hypoxia or hypercapnia; S22.39XA Fracture of one rib, unspecified side, initial encounter for closed fracture; J90 Pleural effusion, not elsewhere classified; G90.8 Other disorders of autonomic nervous system; R62.7 Adult failure to thrive; X58.XXXA Exposure to other specified factors, initial encounter; Y93.89 Activity, other specified; Y92.89 Other specified places as the place of occurrence of the external cause; Y99.8 Other external cause status; E11.9 Type 2 diabetes mellitus without complications; I27.21 Secondary pulmonary arterial hypertension; I27.20 Pulmonary hypertension, unspecified; D64.9 Anemia, unspecified; G89.4 Chronic pain syndrome; E78.5 Hyperlipidemia, unspecified; J44.9 Chronic obstructive pulmonary disease, unspecified; M79.7 Fibromyalgia
CPT/HCPCS: 36415; 80048; 80061; 82962; 92508; 92523; 92610; 93970; 94640; 97110; 97116; 97162; 97166; 97530; 97535; G0515; J1650; J7620

== ENCOUNTER 2024-02-27 10:53 | Inpatient (IN) | payer MEDICARE, MEDICAID ==
[~2024-02-27] VITALS: Ht 167.6 cm; Wt 60.8 kg
[~2024-02-27 10:53] MED LIST changes: -ATEN100T PO; -BENA40TA9 PO; +CLOP-31 PO; -CLOP75TA16 PO; -HYDR25TA PO
[2024-02-27 11:52] VITALS: PULSE 108; RESP 20; O2SAT 100
[2024-02-27] MEDS: IPRATROPIUM BROMIDE (0.02%) 0.5MG/2.5ML NEB HHN STA (11:52)
[2024-02-27] MEDS: ALBUTEROL (0.083%) 2.5MG/3ML NEB HHN SCH (11:52)
[2024-02-27 12:16] LABS: HEMATOCRIT. 39.7 % (36.0-48.0); HEMOGLOBIN. 13.2 g/dL (12.0-16.0); MEAN CORPUSCULAR HEMOGLOBIN 25.5 pg (28.0-32.0); MEAN CORPUSCULAR HGB CONC 33.4 g/dL (31.0-37.0); MEAN CORPUSCULAR VOLUME 76.5 fL (81.0-99.0); MEAN PLATELET VOLUME 7.7 fl (7.4-10.4); PLATELET 329 x1000/uL (130-400); RED BLOOD CELL COUNT 5.19 mill/uL (4.2-5.4); RED CELL DISTRIBUTION WIDTH 15.5 % (11.6-14.6); WHITE BLOOD COUNT 14.9 x1000/uL (4.5-11.0)
[2024-02-27 12:19] LABS: DIFFERENTIAL COMMENT 1
[2024-02-27 12:22] VITALS: PULSE 110; RESP 20; O2SAT 100
[2024-02-27 12:48] LABS: CHLORIDE 111 mEq/L (98-107); POTASSIUM 3.6 mEq/L (3.5-5.1); SODIUM 140 mEq/L (136-145)
[2024-02-27 12:50] LABS: CARBON DIOXIDE 22 mEq/L (21-32)
[2024-02-27 12:52] VITALS: PULSE 114; RESP 18; O2SAT 100
[2024-02-27 12:55] LABS: CREATININE 0.7 mg/dL (0.6-1.0); GLUCOSE 128 mg/dL (70-105); UREA NITROGEN BLOOD 15 mg/dL (9-23)
[2024-02-27 13:03] LABS: TROPONIN I HIGH SENSITIVITY < 4 ng/L (3.0-34)
[2024-02-27 13:35] LABS: CALCIUM 10.9 mg/dL (8.7-10.4)
[2024-02-27 15:27] LABS: ANISOCYTOSIS 1+; MICROCYTOSIS 1+; PLATELET ESTIMATE NORMAL
[2024-02-27] MEDS: CEFTRIAXONE 1GM/50ML 50 ML IV ONE (17:00)
[2024-02-27] MEDS: SODIUM CHLORIDE 0.9% 1,000 ML IV ONE (17:00)
[2024-02-27] MEDS ORDERED: ACETAMINOPHEN 325MG TABLET PO PRN (17:45)
[2024-02-27] MEDS ORDERED: DOCUSATE SODIUM 100MG CAPSULE PO PRN (17:45)
[2024-02-27] MEDS ORDERED: ONDANSETRON HCL 4MG/2ML INJ IV PRN (17:45)
[2024-02-27] MEDS ORDERED: GUAIFENESIN 200MG/10ML SUGAR FREE UDC PO PRN (17:45)
[2024-02-27] MEDS ORDERED: MAGNESIUM/ALUMINUM HYDROXIDE/SIMETHICONE 30ML UDC PO PRN (17:45)
[2024-02-27] MEDS ORDERED: ENOXAPARIN 40MG/0.4ML SYR SUBCUT SCH (18:00)
[2024-02-27] MEDS ORDERED: AMLODIPINE 10MG TABLET PO SCH (18:15)
[2024-02-27] MEDS ORDERED: DEXTROSE 50% WATER 50ML SYRINGE IV PRN (18:15)
[2024-02-27] MEDS: INSULIN LISPRO 100 UNITS/ML SUBCUT SCH (18:18)
[2024-02-27 18:55] VITALS: BP 166/83; PULSE 112; RESP 20; TEMP 98.3
[2024-02-27] MEDS: SODIUM CHLORIDE 0.45% 1,000 ML IV SCH (19:09)
[2024-02-27] MEDS: AMLODIPINE 5MG TABLET PO SCH (19:09)
[2024-02-27 20:00] VITALS: BP 135/103; PULSE 102; RESP 18; RESP 20; TEMP 97.8
[2024-02-27] MEDS: PIPERACILLIN/TAZO 3.375G/50ML 50 ML IV SCH (20:58)
[2024-02-27] MEDS: VANCOMYCIN 1G PREMIX 200 ML IV SCH (21:13)
[2024-02-27] MEDS: BLOOD SUGAR DIAGNOSTIC STRIP TEST SCH (21:59)
[2024-02-28] VITALS: BP 146/79; PULSE 104; RESP 18; TEMP 97.5
[2024-02-28] MEDS ORDERED: LISI40TA13 PO (00:13)
[2024-02-28] MEDS ORDERED: ATEN50TA PO (00:13)
[2024-02-28] MEDS ORDERED: METF-874 PO (00:13)
[2024-02-28] MEDS ORDERED: ATOR40TA70 PO (00:13)
[2024-02-28 01:34] LABS: TROPONIN I HIGH SENSITIVITY 19 ng/L (3.0-34)
[2024-02-28 01:46] LABS: CREATINE KINASE 1793 IU/L (34-145)
[2024-02-28 04:00] VITALS: BP 141/75; PULSE 108; RESP 17; TEMP 97.6
[2024-02-28 06:57] LABS: BASOPHILS % 0.6 % (0.0-2.0); DIFFERENTIAL COMMENT 0; EOSINOPHILS % 0.1 % (0.0-5.0); HEMATOCRIT. 38.6 % (36.0-48.0); HEMOGLOBIN. 12.6 g/dL (12.0-16.0); LYMPHOCYTES % 17.3 % (20.0-50.0); MEAN CORPUSCULAR HEMOGLOBIN 24.7 pg (28.0-32.0); MEAN CORPUSCULAR HGB CONC 32.7 g/dL (31.0-37.0); MEAN CORPUSCULAR VOLUME 75.6 fL (81.0-99.0); MEAN PLATELET VOLUME 7.8 fl (7.4-10.4); MONOCYTES % 8.4 % (2.0-8.0); NEUTROPHILS % 73.6 % (40.0-76.0); PLATELET 329 x1000/uL (130-400); RED BLOOD CELL COUNT 5.11 mill/uL (4.2-5.4); RED CELL DISTRIBUTION WIDTH 15.7 % (11.6-14.6); WHITE BLOOD COUNT 14.1 x1000/uL (4.5-11.0)
[2024-02-28 07:26] LABS: LDL CHOLESTEROL 64 mg/dL (5-100)
[2024-02-28 07:27] LABS: ALANINE AMINOTRANSFERASE 24 IU/L (10-49); ALBUMIN 4.2 g/dL (3.2-4.8); ASPARTATE AMINOTRANSFERASE 65 IU/L (<34); CHOLESTEROL 141 mg/dL (<200); HDL CHOLESTEROL 63 mg/dL (>65)
[2024-02-28 07:28] LABS: BILIRUBIN TOTAL 1.2 mg/dL (0.1-1.0); PROTEIN TOTAL 7.9 g/dL (6.0-8.3)
[2024-02-28 07:31] LABS: T4 FREE 0.98 ng/dL (0.89-1.76)
[2024-02-28 07:35] LABS: THYROID STIMULATING HORMONE 1.14 uIU/mL (0.55-4.78)
[2024-02-28 07:53] LABS: CREATINE KINASE 1696 IU/L (34-145)
[2024-02-28 08:00] VITALS: BP 122/70; PULSE 100; RESP 18; TEMP 98.4
[2024-02-28 08:28] LABS: CHLORIDE 108 mEq/L (98-107); POTASSIUM 3.5 mEq/L (3.5-5.1); SODIUM 140 mEq/L (136-145)
[2024-02-28 08:29] LABS: CALCIUM 10.7 mg/dL (8.7-10.4); CARBON DIOXIDE 20 mEq/L (21-32)
[2024-02-28 08:33] LABS: TROPONIN I HIGH SENSITIVITY 15 ng/L (3.0-34)
[2024-02-28 08:34] LABS: CREATININE 0.8 mg/dL (0.6-1.0); GLUCOSE 97 mg/dL (70-105); TRIGLYCERIDE 41 mg/dL (0-150); UREA NITROGEN BLOOD 11 mg/dL (9-23)
[2024-02-28] MEDS: CLOPIDOGREL 75MG TABLET PO SCH (08:43)
[2024-02-28 11:59] LABS: CLARITY URINE CLEAR (CLEAR); COLOR URINE YELLOW (YELLOW); GLUCOSE URINE TRACE (NEGATIVE); KETONES URINE NEGATIVE (NEGATIVE); LEUKOCYTE ESTERASE URINE NEGATIVE (NEGATIVE); NITRITE URINE NEGATIVE (NEGATIVE); OCCULT BLOOD URINE TRACE (NEGATIVE); PH URINE 5.5 (4.5-8.0); PROTEIN URINE 2+ (NEGATIVE); SPECIFIC GRAVITY URINE 1.023 (1.005-1.030); UROBILINOGEN URINE 0.2 E.U./dL (0.2-1.0)
[2024-02-28 12:00] VITALS: BP 125/81; PULSE 110; RESP 18; TEMP 97.7
[2024-02-28 12:23] LABS: BACTERIA URINE 1+; SQUAMOUS EPITHELIAL CELL URINE 2+ /lpf (RARE/1+); YEAST URINE NONE SEEN
[2024-02-28 12:55] LABS: *AMPHETAMINES SCREEN URINE NEGATIVE (NEGATIVE); *BARBITURATES SCREEN URINE NEGATIVE (NEGATIVE); *BENZODIAZEPINES SCREEN URINE NEGATIVE (NEGATIVE); *COCAINE SCREEN URINE NEGATIVE (NEGATIVE); CANNABINOID URINE SCREEN NEGATIVE (NEGATIVE); ECSTASY MDMA SCREEN URINE NEGATIVE (NEGATIVE); METHADONE URINE SCREEN NEGATIVE (NEGATIVE); OPIATES URINE SCREEN NEGATIVE (NEGATIVE); PHENCYCLIDINE URINE SCREEN NEGATIVE (NEGATIVE)
[2024-02-28 16:00] VITALS: BP 115/71; PULSE 119; RESP 18; TEMP 97.5
[2024-02-28 20:00] VITALS: BP 121/71; PULSE 98; RESP 18; TEMP 97.5
[2024-02-28] MEDS ORDERED: ENOXAPARIN 40MG/0.4ML SYR SUBCUT SCH (21:00)
[2024-02-28] MEDS: MELATONIN 3MG TABLET PO SCH (21:21)
[2024-02-28] MEDS: VANCOMYCIN 1G PREMIX 200 ML IV SCH (21:38)
[2024-02-28] MEDS: PIPERACILLIN/TAZO 3.375G/50ML 50 ML IV SCH (21:38)
[2024-02-29] VITALS: BP 132/74; PULSE 84; RESP 16; TEMP 97.4
[2024-02-29 04:00] VITALS: BP 165/90; PULSE 95; RESP 17; TEMP 97.5
[2024-02-29] MEDS: CLONIDINE 0.1MG TABLET PO PRN (05:02)
[2024-02-29 07:11] LABS: BASOPHILS % 0.8 % (0.0-2.0); DIFFERENTIAL COMMENT 0; EOSINOPHILS % 0.8 % (0.0-5.0); HEMOGLOBIN. 12.9 g/dL (12.0-16.0); LYMPHOCYTES % 22.6 % (20.0-50.0); MEAN CORPUSCULAR HEMOGLOBIN 24.5 pg (28.0-32.0); MEAN CORPUSCULAR HGB CONC 32.3 g/dL (31.0-37.0); MONOCYTES % 8.9 % (2.0-8.0); NEUTROPHILS % 66.9 % (40.0-76.0); PLATELET 330 x1000/uL (130-400); RED BLOOD CELL COUNT 5.27 mill/uL (4.2-5.4); RED CELL DISTRIBUTION WIDTH 15.7 % (11.6-14.6); WHITE BLOOD COUNT 10.6 x1000/uL (4.5-11.0)
[2024-02-29 07:32] LABS: CALCIUM 10.6 mg/dL (8.7-10.4); CARBON DIOXIDE 25 mEq/L (21-32); CHLORIDE 105 mEq/L (98-107); POTASSIUM 3.7 mEq/L (3.5-5.1); SODIUM 139 mEq/L (136-145)
[2024-02-29 07:37] LABS: CREATININE 0.9 mg/dL (0.6-1.0)
[2024-02-29 07:38] LABS: GLUCOSE 113 mg/dL (70-105); UREA NITROGEN BLOOD 15 mg/dL (9-23)
[2024-02-29 07:41] LABS: PHOSPHORUS 2.4 mg/dL (2.5-4.9)
[2024-02-29 08:00] VITALS: BP 147/84; PULSE 88; RESP 18; TEMP 97.8
[2024-02-29] MEDS: MAGNESIUM 4 G PREMIX 100 ML IV NR (10:22)
[2024-02-29 12:00] VITALS: BP 126/61; PULSE 94; RESP 18; TEMP 97.9
[2024-02-29] MEDS: POTASSIUM PHOSPHATE 20 MMOL in DEXT 5% WATER 243.3333 ML IV NR (13:36)
[2024-02-29 16:00] VITALS: BP 129/69; PULSE 103; RESP 18; TEMP 97.6
[2024-02-29 20:00] VITALS: BP 111/62; PULSE 84; RESP 18; TEMP 98.4
[2024-02-29] MEDS: ACETAMINOPHEN 325MG TABLET PO PRN (21:27)
[2024-03-01] VITALS: BP 136/61; PULSE 76; RESP 18; TEMP 97.5
[2024-03-01 04:00] VITALS: BP 117/84; PULSE 75; RESP 18; TEMP 98.2
[2024-03-01 06:22] LABS: CHLORIDE 108 mEq/L (98-107); POTASSIUM 3.7 mEq/L (3.5-5.1); SODIUM 139 mEq/L (136-145)
[2024-03-01 06:23] LABS: CALCIUM 10.1 mg/dL (8.7-10.4); CARBON DIOXIDE 23 mEq/L (21-32)
[2024-03-01 06:28] LABS: CREATININE 0.8 mg/dL (0.6-1.0); GLUCOSE 90 mg/dL (70-105); UREA NITROGEN BLOOD 13 mg/dL (9-23)
[2024-03-01 07:03] LABS: BASOPHILS % 0.7 % (0.0-2.0); DIFFERENTIAL COMMENT 0; EOSINOPHILS % 0.9 % (0.0-5.0); HEMATOCRIT. 38.7 % (36.0-48.0); HEMOGLOBIN. 12.7 g/dL (12.0-16.0); LYMPHOCYTES % 22.1 % (20.0-50.0); MEAN CORPUSCULAR HGB CONC 32.8 g/dL (31.0-37.0); MEAN CORPUSCULAR VOLUME 76.2 fL (81.0-99.0); MEAN PLATELET VOLUME 8.2 fl (7.4-10.4); MONOCYTES % 9.5 % (2.0-8.0); NEUTROPHILS % 66.8 % (40.0-76.0); PLATELET 322 x1000/uL (130-400); RED BLOOD CELL COUNT 5.08 mill/uL (4.2-5.4); RED CELL DISTRIBUTION WIDTH 15.6 % (11.6-14.6); WHITE BLOOD COUNT 10.9 x1000/uL (4.5-11.0)
[2024-03-01 07:48] VITALS: BP 178/95; PULSE 92; RESP 19; TEMP 97.3
[2024-03-01 11:55] VITALS: BP 146/68; PULSE 70; RESP 19; TEMP 97.4
[2024-03-01 16:00] VITALS: BP 164/90; PULSE 111; RESP 19; TEMP 97.7
[2024-03-01] MEDS: VANCOMYCIN 1.25GM PMX (XELLIA) 250 ML IV SCH (17:38)
[2024-03-01 20:00] VITALS: BP 131/74; PULSE 116; RESP 18; TEMP 98.6
[2024-03-02] VITALS: BP 128/60; PULSE 80; RESP 20; TEMP 97
[2024-03-02 04:00] VITALS: BP 129/82; PULSE 98; RESP 20; TEMP 97.8
[2024-03-02 08:00] VITALS: BP 132/80; PULSE 94; RESP 20; TEMP 98
[2024-03-02] MEDS ORDERED: LIDOCAINE HCL 1% 10 MG/ML 10ML VIAL ONE (09:21)
[2024-03-02] MEDS: IOHEXOL-350 100 ML BOTTLE ONE (11:36)
[2024-03-02 12:00] VITALS: BP 160/87; PULSE 82; RESP 19; TEMP 97.6
[2024-03-02 16:00] VITALS: BP 140/89; PULSE 104; RESP 20; TEMP 98
[2024-03-02 20:00] VITALS: BP 150/84; PULSE 77; RESP 18; TEMP 97
[2024-03-03] VITALS (7 sets, daily range): BP systolic 132–152; BP diastolic 66–86; PULSE 80–118; RESP 18–20; TEMP 97.8–99.1
[2024-03-03 06:25] LABS: CARBON DIOXIDE 23 mEq/L (21-32); CHLORIDE 105 mEq/L (98-107); POTASSIUM 3.9 mEq/L (3.5-5.1); SODIUM 136 mEq/L (136-145)
[2024-03-03 06:31] LABS: CREATININE 0.8 mg/dL (0.6-1.0); GLUCOSE 100 mg/dL (70-105); UREA NITROGEN BLOOD 12 mg/dL (9-23)
[2024-03-03 06:34] LABS: PHOSPHORUS 2.6 mg/dL (2.5-4.9)
[2024-03-03 06:51] LABS: BASOPHILS % 0.5 % (0.0-2.0); DIFFERENTIAL COMMENT 0; EOSINOPHILS % 0.5 % (0.0-5.0); HEMATOCRIT. 38.2 % (36.0-48.0); HEMOGLOBIN. 12.5 g/dL (12.0-16.0); LYMPHOCYTES % 18.2 % (20.0-50.0); MEAN CORPUSCULAR HEMOGLOBIN 24.8 pg (28.0-32.0); MEAN CORPUSCULAR HGB CONC 32.7 g/dL (31.0-37.0); MEAN CORPUSCULAR VOLUME 75.8 fL (81.0-99.0); MEAN PLATELET VOLUME 8.2 fl (7.4-10.4); MONOCYTES % 10.2 % (2.0-8.0); NEUTROPHILS % 70.6 % (40.0-76.0); PLATELET 316 x1000/uL (130-400); RED BLOOD CELL COUNT 5.04 mill/uL (4.2-5.4); RED CELL DISTRIBUTION WIDTH 15.5 % (11.6-14.6); WHITE BLOOD COUNT 11.3 x1000/uL (4.5-11.0)
[2024-03-03] MEDS: MAGNESIUM 4 G PREMIX 100 ML IV NR (10:07)
[2024-03-03] MEDS: ENOXAPARIN 40MG/0.4ML SYR SUBCUT SCH (13:30)
[2024-03-03] MEDS: SODIUM CHLORIDE 0.9% 500 ML IV ONE (16:08)
[2024-03-04] VITALS: BP 145/66; PULSE 70; RESP 20; TEMP 98.2
[2024-03-04 04:00] VITALS: BP 152/80; PULSE 82; RESP 20; TEMP 98.6
[2024-03-04 05:43] LABS: CARBON DIOXIDE 23 mEq/L (21-32); CHLORIDE 104 mEq/L (98-107); SODIUM 136 mEq/L (136-145)
[2024-03-04 05:44] LABS: CALCIUM 9.8 mg/dL (8.7-10.4)
[2024-03-04 05:48] LABS: CREATININE 0.7 mg/dL (0.6-1.0)
[2024-03-04 05:49] LABS: GLUCOSE 109 mg/dL (70-105)
[2024-03-04 05:50] LABS: UREA NITROGEN BLOOD 13 mg/dL (9-23)
[2024-03-04 05:52] LABS: PHOSPHORUS 2.3 mg/dL (2.5-4.9)
[2024-03-04 05:59] LABS: BASOPHILS % 0.5 % (0.0-2.0); DIFFERENTIAL COMMENT 0; EOSINOPHILS % 0.3 % (0.0-5.0); HEMATOCRIT. 36.3 % (36.0-48.0); HEMOGLOBIN. 12.1 g/dL (12.0-16.0); LYMPHOCYTES % 11.9 % (20.0-50.0); MEAN CORPUSCULAR HEMOGLOBIN 25.1 pg (28.0-32.0); MEAN CORPUSCULAR HGB CONC 33.4 g/dL (31.0-37.0); MEAN CORPUSCULAR VOLUME 75.1 fL (81.0-99.0); MEAN PLATELET VOLUME 7.9 fl (7.4-10.4); MONOCYTES % 7.6 % (2.0-8.0); NEUTROPHILS % 79.7 % (40.0-76.0); PLATELET 317 x1000/uL (130-400); RED BLOOD CELL COUNT 4.84 mill/uL (4.2-5.4); RED CELL DISTRIBUTION WIDTH 15.3 % (11.6-14.6)
[2024-03-04 08:00] VITALS: BP 144/81; PULSE 87; RESP 20; TEMP 99
[2024-03-04] MEDS: AMLODIPINE 10MG TABLET PO SCH ×2 (09:00→09:07)
[2024-03-04 12:00] VITALS: BP_SYST 105; BP_SYST 152; BP_DIAS 63; BP_DIAS 80; PULSE 81; PULSE 82; RESP 18; RESP 20; TEMP 97.5; TEMP 98.6
[2024-03-04] MEDS: POTASSIUM PHOSPHATE 20 MMOL in DEXT 5% WATER 243.3333 ML IV NR (12:40)
[2024-03-04 15:11] LABS: CLARITY URINE CLEAR (CLEAR); COLOR URINE YELLOW (YELLOW); GLUCOSE URINE 1+ (NEGATIVE); KETONES URINE NEGATIVE (NEGATIVE); LEUKOCYTE ESTERASE URINE TRACE (NEGATIVE); NITRITE URINE NEGATIVE (NEGATIVE); OCCULT BLOOD URINE 3+ (NEGATIVE); PH URINE 6.5 (4.5-8.0); PROTEIN URINE TRACE (NEGATIVE); SPECIFIC GRAVITY URINE 1.015 (1.005-1.030); UROBILINOGEN URINE 0.2 E.U./dL (0.2-1.0)
[2024-03-04 15:38] LABS: HYALINE CASTS URINE 0-5 /lpf; SQUAMOUS EPITHELIAL CELL URINE 2+ /lpf (RARE/1+)
[2024-03-04 15:40] LABS: RBC URINE 15-25 /hpf (0-2)
[2024-03-04 15:42] LABS: BACTERIA URINE TRACE
[2024-03-04 16:00] VITALS: BP 139/76; PULSE 80; RESP 20; TEMP 98.3
[2024-03-04 18:10] VITALS: BP 144/81; PULSE 87; TEMP 98.7; O2SAT 99
== END 2024-03-04 18:50 | disposition home health service (06) | DRG 871 ==
LOC: ER 10:53 → EDBEDREQTM 16:53 → EDBEDREQ 16:53 → 8WST 18:18
PROVIDERS: ADMIT Preventive Medicine Clinical Informatics; ATTEND Preventive Medicine Clinical Informatics
PROC: 02HV33Z Insertion of Infusion Device into Superior Vena Cava, Percutaneous Approach (ICD-10-PCS; principal; 2024-03-02)
PROC: B548ZZA Ultrasonography of Superior Vena Cava, Guidance (ICD-10-PCS; 2024-03-02)
PROC: B5181ZA Fluoroscopy of Superior Vena Cava using Low Osmolar Contrast, Guidance (ICD-10-PCS; 2024-03-02)
DX: A41.9 Sepsis, unspecified organism (principal); J18.9 Pneumonia, unspecified organism; J96.01 Acute respiratory failure with hypoxia; J44.0 Chronic obstructive pulmonary disease with (acute) lower respiratory infection; N39.0 Urinary tract infection, site not specified; M17.11 Unilateral primary osteoarthritis, right knee; J44.9 Chronic obstructive pulmonary disease, unspecified; I25.10 Atherosclerotic heart disease of native coronary artery without angina pectoris; I10 Essential (primary) hypertension; E83.39 Other disorders of phosphorus metabolism; F03.90 Unspecified dementia, unspecified severity, without behavioral disturbance, psychotic disturbance, mood disturbance, and anxiety; Z79.02 Long term (current) use of antithrombotics/antiplatelets; E83.42 Hypomagnesemia; Z20.822 Contact with and (suspected) exposure to COVID-19; E11.8 Type 2 diabetes mellitus with unspecified complications; W01.0XXA Fall on same level from slipping, tripping and stumbling without subsequent striking against object, initial encounter; Z79.4 Long term (current) use of insulin; Z79.899 Other long term (current) drug therapy; Y93.89 Activity, other specified; Y92.89 Other specified places as the place of occurrence of the external cause; Y99.8 Other external cause status
CPT/HCPCS: 36415; 36573; 71045; 71275; 73080; 73562; 80048; 80053; 80061; 80202; 80305; 81003; 82550; 82962; 83036; 83605; 83735; 83880; 84100; 84145; 84439; 84443; 84484; 85025; 85379; 87426; 87804; 92610; 93005; 93306; 93970; 94640; 97162; 97165; 97530; 99285; C1725; C1893; J0696; J1650; J1815; J2543; J3370; J3475; J3490; J7030; J7060; Q9967